=== PATIENT | male | born 1975 | race African-American/Black ===

== ENCOUNTER 2017-08-29 22:03 | Inpatient (IN) | payer MEDICAID ==
[~2017-08-29] VITALS: Ht 175.3 cm; Wt 66.1 kg
[2017-08-29] MEDS ORDERED: ZOLPIDEM TARTRATE 10 MG TABLET PO PRN (23:00)
[2017-08-29] MEDS ORDERED: HALOPERIDOL 5 MG TABLET PO PRN (23:00)
[2017-08-29] MEDS ORDERED: PARO20TA24 PO (23:16)
[2017-08-29] MEDS ORDERED: TRAZ-144 PO (23:16)
[2017-08-29 23:19] VITALS: BP 117/79
[2017-08-29] MEDS ORDERED: INFLUENZA VIRUS VACCINE QVS 2017-18 (3YR+)/PF 60 MCG/0.5 ML SYRINGE IM ONE (23:45)
[2017-08-29] MEDS ORDERED: PNEUMOCOCCAL VACCINE POLYVALENT 0.5 ML VIAL [PPSV23] IM ONE (23:45)
[2017-08-30 00:02] VITALS: BP 112/79
[2017-08-30] MEDS: LORazepam 2 MG TABLET PO PRN ×2 (04:29→13:59)
[2017-08-30 08:28] LABS: BASOPHILS % (AUTO) 0.6 % (0.0-2.0); EOSINOPHILS % (AUTO) 5.5 % (1.0-6.0); HEMATOCRIT 42.4 % (41-53); HEMOGLOBIN 14.8 g/dL (13.5-17.5); LYMPHOCYTES # (AUTO) 2.3 K/uL (1.0-4.8); LYMPHOCYTES % (AUTO) 46.4 % (22.0-44.0); MEAN CORPUSCULAR HEMOGLOBIN 32.6 pg (26.0-34.0); MEAN CORPUSCULAR HGB CONC 34.8 G/dL (31.0-37.0); MEAN CORPUSCULAR VOLUME 93 fL (80-100); MONOCYTES # (AUTO) 0.4 K/uL (0.1-1.0); MONOCYTES % (AUTO) 8.9 % (2.0-9.0); NEUTROPHILS # (AUTO) 1.9 K/uL (1.8-7.7); NEUTROPHILS % (AUTO) 38.6 % (40.0-70.0); PLATELET COUNT (AUTO) 151 K/uL (150-450); RED BLOOD CELL COUNT(AUTO) 4.54 MIL/uL (4.50-5.90); RED CELL DISTRIBUTION WIDTH 14.6 % (11.5-14.5)
[2017-08-30 08:39] VITALS: BP 163/86
[2017-08-30 08:47] LABS: AMPHET/METH SCREEN,URINE NEGATIVE (NEGATIVE); BARBITURATE SCREEN, URINE NEGATIVE (NEGATIVE); BENZODIAZEPINES SCREEN,URINE NEGATIVE (NEGATIVE); CANNABINOID SCREEN,URINE NEGATIVE (NEGATIVE); COCAINE SCREEN,URINE NEGATIVE (NEGATIVE); METHADONE SCREEN, URINE NEGATIVE (NEGATIVE); OPIATE SCREEN,URINE NEGATIVE (NEGATIVE)
[2017-08-30 08:47] LABS: HEMOGLOBIN A1C 5.4 % (4.5-6.2)
[2017-08-30 08:51] LABS: PHENCYCLIDINE SCREEN,URINE NEGATIVE (NEGATIVE)
[2017-08-30 09:00] LABS: ALANINE AMINOTRANSFERASE 30 U/L (12-78); ALBUMIN 3.5 g/dL (3.4-5.0); ALKALINE PHOSPHATASE 53 U/L (46-116); ANION GAP 7 mmol/L (8-16); ASPARTATE AMINOTRANSFERASE 22 U/L (15-37); BILIRUBIN,TOTAL 0.4 mg/dL (0.1-1.0); CALCIUM, TOTAL 8.5 mg/dL (8.8-10.5); CARBON DIOXIDE 28 mmol/L (22-29); CHLORIDE 106 mmol/L (98-107); CHOLESTEROL 133 mg/dL (131-200); CREATININE 0.93 mg/dL (0.60-1.30); GLOMERULAR FILTR. RATE CALC > 60 mL/min (>60); GLUCOSE,RANDOM 84 mg/dL (70-110); HDL CHOLESTEROL 45 mg/dL (40-60); LDL CHOL (CALC.) 77 mg/dL (0-130); SODIUM SERUM 141 mmol/L (136-145); THYROID STIMULATING HORMONE 3.11 uIU/mL (0.36-3.74); TRIGLYCERIDES 55 mg/dL (15-150); UREA NITROGEN, BLOOD 9 mg/dL (7-18)
[2017-08-30 09:01] LABS: APPEARANCE,URINE CLEAR (CLEAR); BILIRUBIN,URINE NEGATIVE (NEGATIVE); GLUCOSE, URINE (UA) NEGATIVE (NEGATIVE); KETONES,URINE NEGATIVE (NEGATIVE); LEUKOCYTE ESTERASE ,URINE NEGATIVE (NEGATIVE); NITRATE,URINE NEGATIVE (NEGATIVE); OCCULT BLOOD,URINE NEGATIVE (NEGATIVE); PH,URINE 7.5 (5.0-8.0); PROTEIN,URINE NEGATIVE (NEGATIVE); UROBILINOGEN,URINE 0.2 mg/dL (<=1.0)
[2017-08-30 13:58] VITALS: BP 109/75
[2017-08-30] MEDS ORDERED: BACITRACIN 28.4 GM OINTMENT TP PRN (16:30)
[2017-08-30] MEDS ORDERED: BENZOCAINE/MENTHOL LOZENGE MM PRN (16:30)
[2017-08-30] MEDS ORDERED: ACETAMINOPHEN 325 MG TABLET PO PRN (16:30)
[2017-08-30] MEDS ORDERED: MAG HYDROX/AL HYDROX/SIMETH ES 30 ML SUSPENSION UDCUP PO PRN (16:30)
[2017-08-30] MEDS ORDERED: MAGNESIUM HYDROXIDE SUSPENSION 30 ML UDCUP PO PRN (16:30)
[2017-08-30] MEDS ORDERED: ONDANSETRON HCL 4 MG TABLET PO PRN (16:30)
[2017-08-30] MEDS ORDERED: IBUPROFEN 600 MG TABLET PO PRN (16:30)
[2017-08-30] MEDS ORDERED: LOPERAMIDE HCL 2 MG CAPSULE PO PRN (16:30)
[2017-08-30] MEDS ORDERED: CloNIDine HCL 0.1 MG TABLET PO PRN (16:30)
[2017-08-30] MEDS ORDERED: ALBUTEROL SULFATE HFA 90 MCG/PUFF 8 GM INHALER IH PRN (16:30)
[2017-08-30] MEDS ORDERED: PETROLATUM,WHITE 71 GM JELLY TP PRN (16:30)
[2017-08-30 16:37] VITALS: BP 112/64
[2017-08-30] MEDS: MIRTAZAPINE 15 MG TABLET PO SCH (20:41)
[2017-08-30] MEDS: TraZODone HCL 50 MG TABLET PO SCH (20:41)
[2017-08-30] MEDS ORDERED: PARoxetine HCL 10 MG TABLET PO ONE (21:00)
[2017-08-31 00:12] VITALS: BP 117/73
[2017-08-31 08:48] VITALS: BP 121/96
[2017-08-31] MEDS: MULTIVITAMINS WITH MINERALS, THERAPEUTIC TABLET PO SCH (08:53)
[2017-08-31] MEDS: LORazepam 2 MG TABLET PO PRN (13:49)
[2017-08-31 16:18] VITALS: BP 124/78
[2017-08-31] MEDS: MIRTAZAPINE 15 MG TABLET PO SCH (20:31)
[2017-08-31] MEDS: TraZODone HCL 50 MG TABLET PO SCH (20:31)
[2017-08-31] MEDS ORDERED: PARoxetine HCL 10 MG TABLET PO ONE (21:00)
[2017-08-31] MEDS ORDERED: PARoxetine HCL 10 MG TABLET PO SCH (21:00)
[2017-09-01 01:16] VITALS: BP 107/64
[2017-09-01] MEDS: LORazepam 2 MG TABLET PO PRN (09:03)
[2017-09-01] MEDS: MULTIVITAMINS WITH MINERALS, THERAPEUTIC TABLET PO SCH (09:03)
[2017-09-01 09:15] VITALS: BP 121/83
[2017-09-01] MEDS ORDERED: MIRT15 PO (12:01)
[2017-09-01] MEDS ORDERED: TRAZ-147 PO (12:02)
[2017-09-01] MEDS ORDERED: TraZODone HCL 100 MG TABLET PO SCH (21:00)
== END 2017-09-01 14:37 | disposition home or self-care (01) | DRG 751 ==
LOC: EDSTATUS 22:04 → B2S 22:52 → EDSTATUS 22:59
PROVIDERS: ADMIT Psychiatry & Neurology Psychiatry; ATTEND Psychiatry & Neurology Psychiatry
DX: F33.2 Major depressive disorder, recurrent severe without psychotic features (principal); R45.851 Suicidal ideations; E83.51 Hypocalcemia; K76.0 Fatty (change of) liver, not elsewhere classified; F41.9 Anxiety disorder, unspecified; G47.00 Insomnia, unspecified; M54.9 Dorsalgia, unspecified; R03.0 Elevated blood-pressure reading, without diagnosis of hypertension; Z63.9 Problem related to primary support group, unspecified; Z28.21 Immunization not carried out because of patient refusal; Z81.8 Family history of other mental and behavioral disorders
CPT/HCPCS: 80307; 82306; 83036; 84439; 84443; 99285